=== PATIENT | female | born 1970 | race American Indian/Alaskan Native ===

== ENCOUNTER 2018-08-04 11:08 | Emergency (ER) | payer BC ==
[2018-08-04 11:16] VITALS: TEMP 97.8; O2SAT 98; BMI 41.5
[2018-08-04] MEDS ORDERED: Sodium Chloride 0.9% 1,000 ML IV STA (11:28)
--- NOTE | 2018-08-04 11:39 | ED PDOC ---
HPI: Abdomen Time Seen by Provider: 08/04/18 11:26 Chief Complaint (Nursing): Rib Injury Chief Complaint (Provider): Rib Injury History Per: Patient History/Exam Limitations: no limitations Onset/Duration Of Symptoms: Gradual (x1 week) Current Symptoms Are (Timing): Still Present Additional Complaint(s): 48 year old female presents to the emergency department with persistent pain to her right abdomen, flank, and lower rib status post fall injury 1 week ago. Patient states she had slipped in her bathroom and hit herself against the sink which caused severe pain at the time. She believed symptoms would gradually subside on its own, however, began to experience worsening pain with deep breathing and laughing associated with abdominal bloating, decreased appetite, mild constipation, and nausea. Patient has been treating symptoms with Advil and warm compression with minimal improvement. Otherwise, she denies fever, chills, urinary complaints, black or bloody stools. Past Medical History Reviewed: Historical Data, Nursing Documentation, Vital Signs Vital Signs: Last Vital Signs Temp 97.8 F 08/04/18 11:15 Pulse 65 08/04/18 11:15 Resp 20 08/04/18 11:15 BP 130/76 08/04/18 11:15 Pulse Ox 98 08/04/18 11:21 Primary Care Provider: Lorin Taylor - Medical History PMH: Asthma - Surgical History Surgical History: Other surgeries: (2) fibroads - Family History Family History: States: Other Other Family History: kidney failure - Social History Current smoker - smoking cessation education provided: Yes (rarely) Alcohol: Other (rarely) Drugs: Denies - Immunization History Hx Influenza Vaccination: No Hx Pneumococcal Vaccination: No - Home Medications Home Medications: Ambulatory Orders Medication Instructions Recorded Dicyclomine [Bentyl] 20 mg PO QID PRN #20 tab 03/03/14 Ondansetron [Zofran] 4 mg PO Q8H PRN #15 tab 03/03/14 Acetaminophen [Tylenol Extra 1,000 mg PO Q6 PRN #100 tablet 08/04/18 Strength] Lidocaine 5% [Lidoderm] 1 ea TD DAILY PRN #30 patch 08/04/18 Meloxicam [Mobic] 7.5 mg PO DAILY PRN #10 tab 08/04/18 - Allergies Allergies/Adverse Reactions: Allergies Allergy/AdvReac Type Severity Reaction Status Date / Time No Known Allergies Allergy Verified 08/04/18 11:21 Review of Systems ROS Statement: Except As Marked, All Systems Reviewed And Found Negative Constitutional: Negative for: Fever, Chills Cardiovascular: Positive for: Chest Pain (right lower rib) Gastrointestinal: Positive for: Nausea, Abdominal Pain (right flank with bloating), Constipation (mild), Other (decreased appetite). Negative for: Melena, Hematochezia Genitourinary Female: Negative for: Dysuria, Hematuria Physical Exam - Reviewed Nursing Documentation Reviewed: Yes Vital Signs Reviewed: Yes - Physical Exam Appears: Positive for: In Acute Distress (mildly painful) Head Exam: Positive for: ATRAUMATIC, NORMAL INSPECTION, NORMOCEPHALIC Skin: Positive for: Warm, Dry Eye Exam: Positive for: EOMI, PERRL ENT: Negative for: Pharyngeal Erythema, Tonsillar Exudate Neck: Positive for: Painless ROM, Supple Cardiovascular/Chest: Positive for: Other (tenderness along right lower, lateral rib area (-) crepitus or step-off) Respiratory: Positive for: Normal Breath Sounds (clear to ausculation bilaterally). Negative for: Respiratory Distress Gastrointestinal/Abdominal: Positive for: Soft, Tenderness (RUQ near umbilicus area (-) McBurney's point), Distended, Other (healing abrasion with ecchymosis to lateral RUQ). Negative for: Mass, Guarding, Rebound Back: Positive for: R CVA Tenderness. Negative for: L CVA Tenderness, Vertebral Tenderness Extremity: Positive for: Normal ROM. Negative for: Deformity Lymphatic: Negative for: Adenopathy Neurological/Psych: Positive for: Awake, Alert, Oriented. Negative for: Motor/Sensory Deficits - Laboratory Results Result Diagrams: 08/04/18 12:10 08/04/18 12:10 - ECG O2 Sat by Pulse Oximetry: 98 (RA) Pulse Ox Interpretation: Normal Medical Decision Making Medical Decision Making: Initial Impression: right-sided chest, flank, and abdomen pain s/p fall injury Differential diagnosis includes but not limited to: rib fracture; lung contusion; renal or liver injury; abdominal wall contusion Initial Plan: * Labs * CT chest/ABD/pelvis * IV fluids Time: 1358 FINDINGS: CT CHEST WITH CONTRAST: LUNGS: Clear. No nodule, mass or consolidation. MEDIASTINUM: Unremarkable. Normal caliber aorta and pulmonary arterial trunk. No aortic dissection. Normal size heart. LYMPH NODES: Unremarkable. PLEURA: Unremarkable. No pneumothorax. No pleural fluid. BONES: Unremarkable. OTHER FINDINGS: Enlarged, heterogeneous thyroid/right lobe. A elective ultrasound recommended. CT ABDOMEN AND PELVIS: LIVER: Hepatic steatosis. No focal masses. No intrahepatic bile duct dilatation or perihepatic ascites. Hepatomegaly with orthogonal measurements of 18.1 x 19.9 cm. GALLBLADDER AND BILE DUCTS: Unremarkable. PANCREAS: Unremarkable. No gross lesion or ductal dilatation. SPLEEN: Unremarkable. ADRENALS: Unremarkable. No mass. KIDNEYS AND URETERS: Unremarkable. No hydronephrosis. No solid mass. VASCULATURE: No aortic atherosclerotic calcification or mural plaque present. Unremarkable. No aortic aneurysm. BOWEL: Unremarkable. No obstruction. No gross mural thickening. APPENDIX: A normal appendix is visualized in it's entirety. PERITONEUM: Unremarkable. No free fluid. No free air. LYMPH NODES: Unremarkable. No enlarged lymph nodes. BLADDER: Unremarkable. REPRODUCTIVE: Markedly enlarged heterogeneous uterus measures 13.3 x 16.6 x 11.2 cm. Uterine fibroids suspected. In addition there is a fundal area of increased attenuation measuring 2.1 x 4.3 cm. Hounsfield unit values exceed 120 therefore this likel y represents an area of hemorrhage. Additional areas of increased attenuation noted in the body of the uterus. Cystic mass/loculated fluid right lower quadrant, pelvis 4.0 x 9.8 cm. Alternatively, this could represent loculated fluid. BONES: No acute fracture. OTHER FINDINGS: Right kidney flank cutaneous/subcutaneous hematoma without adjacent intra- abdominal or retroperitoneal abnormality. Specifically the adjacent liver and right kidney are normal. IMPRESSION: Thorax: No acute or significant findings. Abdomen retroperitoneum and pelvis: Markedly enlarged myomatous periuterine with areas in the fundus suggesting acute hemorrhage. Loculated collection/cystic mass right lower quadrant-right adnexa. Right flank contusion. DW pt findings. She reports that the fibroids and the cyst have been issues for years and she's had multiple surgeries to address both. Has appointment with instructor painting on August 09. Emphasized importance of followup given size of cyst and fib roids. Also advised to anticipate bleeding. Scribe Attestation: Documented by Elly Lazaro, acting as a scribe for Francheska Cartagena MD. Provider Scribe Attestation: All medical record entries made by the Scribe were at my direction and personally dictated by me. I have reviewed the chart and agree that the record accurately reflects my personal performance of the history, physical exam, medical decision making, and the department course for this patient. I have also personally directed, reviewed, and agree with the discharge instructions and disposition. Disposition - Clinical Impression Clinical Impression: Abdominal wall contusion, Fibroid uterus, Ovarian cyst - Disposition Disposition: Routine/Home Disposition Time: 15:00 Condition: STABLE Additional Instructions: FOLLOWUP WITH YOUR ACOUSTICAL CARPENTER SCHEDULED FOR FURTHER EVALUATION TAKE MEDICATIONS PRESCRIBED. AVOID ANY HEAVY LIFTING OR STRENUOUS ACTIVITY. Prescriptions: Acetaminophen [Tylenol Extra Strength] 1,000 mg PO Q6 PRN #100 tablet PRN Reason: FEVER OR PAIN Lidocaine 5% [Lidoderm] 1 ea TD DAILY PRN #30 patch PRN Reason: PAIN Meloxicam [Mobic] 7.5 mg PO DAILY PRN #10 tab PRN Reason: pain Instructions: Contusion (DC), Ovarian Cyst (DC), Uterine Fibroids (DC)
[2018-08-04 12:19] LABS: BASO # 0.1 K/uL (0.0-0.2); BASO % 0.8 % (0.0-2.0); EOS # 0.2 K/uL (0.0-0.7); EOS % 2.7 % (0.0-4.0); HEMOGLOBIN 11.1 g/dL (12.0-16.0); LYMPH % 26.7 % (20.0-40.0); MEAN CORPUSCULAR HEMOGLOBIN 24.2 pg (27.0-31.0); MEAN CORPUSCULAR HGB CONC 32.2 g/dL (33.0-37.0); MEAN PLATELET VOLUME 7.9 fl (7.2-11.7); MONO # 0.8 K/uL (0.0-0.8); MONO % 10.3 % (0.0-10.0); NEUT # 4.4 K/uL (1.8-7.0); NEUT % 59.5 % (50.0-75.0); RBC 4.59 Mil/uL (3.80-5.20); RED CELL DISTRIBUTION WIDTH 16.9 % (11.5-14.5); WHITE BLOOD COUNT 7.4 K/uL (4.8-10.8)
[2018-08-04 12:23] LABS: PROTHROMBIN TIME 11.4 Seconds (9.8-13.1)
[2018-08-04 12:26] LABS: PARTIAL THROMBOPLASTIN TIME 31.3 Seconds (25.6-37.1)
[2018-08-04 12:27] LABS: ALB/GLOB RATIO 1.3 (1.0-2.1); ALT/SGPT 23 U/L (9-52); AST/SGOT 16 U/L (14-36); BLOOD UREA NITROGEN 13 mg/dl (7-17); CALCIUM 8.9 mg/dL (8.4-10.2); GFR NON-AFRICAN AMERICAN > 60; LIPASE 30 U/L (23-300)
[2018-08-04] MEDS ORDERED: Iohexol 300 100 ML IJ ONE (12:43)
[2018-08-04] MEDS ORDERED: Sodium Chloride 0.9% 50 ML IV ONE (12:43)
--- NOTE | 2018-08-04 14:02 | CT ---
Date of service: 08/04/2018 PROCEDURE: CT Chest, Abdomen and Pelvis with intravenous contrast HISTORY: RIGHT chest/abd/flank pain trauma COMPARISON: None available. TECHNIQUE: IV dose administered: 95 cc Omnipaque 300. Radiation dose: Total exam DLP = 1063.6 mGy-cm. This CT exam was performed using one or more of the following dose reduction techniques: Automated exposure control, adjustment of the mA and/or kV according to patient size, and/or use of iterative reconstruction technique. FINDINGS: CT CHEST WITH CONTRAST: LUNGS: Clear. No nodule, mass or consolidation. MEDIASTINUM: Unremarkable. Normal caliber aorta and pulmonary arterial trunk. No aortic dissection. Normal size heart. LYMPH NODES: Unremarkable. PLEURA: Unremarkable. No pneumothorax. No pleural fluid. BONES: Unremarkable. OTHER FINDINGS: Enlarged, heterogeneous thyroid/right lobe. A elective ultrasound recommended. CT ABDOMEN AND PELVIS: LIVER: Hepatic steatosis. No focal masses. No intrahepatic bile duct dilatation or perihepatic ascites. Hepatomegaly with orthogonal measurements of 18.1 x 19.9 cm. GALLBLADDER AND BILE DUCTS: Unremarkable. PANCREAS: Unremarkable. No gross lesion or ductal dilatation. SPLEEN: Unremarkable. ADRENALS: Unremarkable. No mass. KIDNEYS AND URETERS: Unremarkable. No hydronephrosis. No solid mass. VASCULATURE: No aortic atherosclerotic calcification or mural plaque present. Unremarkable. No aortic aneurysm. BOWEL: Unremarkable. No obstruction. No gross mural thickening. APPENDIX: A normal appendix is visualized in it's entirety. PERITONEUM: Unremarkable. No free fluid. No free air. LYMPH NODES: Unremarkable. No enlarged lymph nodes. BLADDER: Unremarkable. REPRODUCTIVE: Markedly enlarged heterogeneous uterus measures 13.3 x 16.6 x 11.2 cm. Uterine fibroids suspected. In addition there is a fundal area of increased attenuation measuring 2.1 x 4.3 cm. Hounsfield unit values exceed 120 therefore this likely represents an area of hemorrhage. Additional areas of increased attenuation noted in the body of the uterus. Cystic mass/loculated fluid right lower quadrant, pelvis 4.0 x 9.8 cm. Alternatively, this could represent loculated fluid. BONES: No acute fracture. OTHER FINDINGS: Right kidney flank cutaneous/subcutaneous hematoma without adjacent intra-abdominal or retroperitoneal abnormality. Specifically the adjacent liver and right kidney are normal. IMPRESSION: Thorax: No acute or significant findings. Abdomen retroperitoneum and pelvis: Markedly enlarged myomatous periuterine with areas in the fundus suggesting acute hemorrhage. Loculated collection/cystic mass right lower quadrant-right adnexa. Right flank contusion. Communication of results: I discussed findings directly with Dr. Cartagena at 13:56.
[2018-08-04 15:29] VITALS: BP 132/78; PULSE 72; RESP 18
== END 2018-08-04 14:50 | disposition home or self-care (01) ==
LOC: H.ER 11:08
DX: S30.1XXA Contusion of abdominal wall, initial encounter (principal); W19.XXXA Unspecified fall, initial encounter; Y92.89 Other specified places as the place of occurrence of the external cause; D25.9 Leiomyoma of uterus, unspecified; N83.209 Unspecified ovarian cyst, unspecified side
CPT/HCPCS: 71260; 74177; 80053; 81025; 83690; 85025; 85610; 85730; 86850; 86900; 99284; J7030; Q9967